=== PATIENT | female | born 1940 | race Caucasian/White ===

== ENCOUNTER 2018-01-06 09:09 | Emergency (ER) | payer MEDICARE, OTHER, SELFPAY ==
--- NOTE | 2018-01-06 09:10 | ED.BACK ---
HPI - Back Pain/Injury General Chief Complaint: Weakness Stated Complaint: Lower R side Back pain Time Seen by Provider: 01/06/18 09:10 Source: patient, family and EMS Mode of arrival: EMS Limitations: no limitations History of Present Illness HPI Narrative: 77-year-old female, nonsmoker presents to the emergency department with a chief complaint of severe right lower back pain upon waking this morning. She states the pain was increased when she got up to try to urinate and she had difficulty ambulating. She laid back down and fell asleep for a few more hours and then woke up again, to urinate and her right lower back pain was severe and she felt rather achy all over. 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 She denies fever or chills. She denies any runny nose, sore throat or cough. She denies dysuria, frequency or urgency. She has had no change in bowel habits. She denies any different or new medications. She has had no problems controlling bowel or bladder. She denies numbness, tingling or weakness in her extremities. She does state that she wore a new pair shoes yesterday with provided very little support Complaint: back pain Onset (ago): hour(s) Duration: constant Similar Symptoms Previously: No Location: lumbar spine Severity: moderate Quality: burning, sharp and aching Radiation: none Relieving factors: immobilization Exacerbating factors: walking Context: other Associated symptoms: denies other symptoms Related Data Home Medications Medication Instructions Recorded Confirmed omega 8-esh-ies-fish oil [Fish Oil] 1,000 iu PO Q DAY #0 08/05/11 01/06/18 Probiotic 1 dose PO PRN PRN 01/06/18 01/06/18 glucosamine sulfate-msm 1 applic TOPICAL DIRECTED 01/06/18 01/06/18 [MSM/Glucosamine] Previous Rx's Medication Instructions Recorded clobetasol 1 pankaj TOPICAL SEE INSTRUCTIONS #30 05/07/17 gm ketorolac 10 mg PO Q4-6H PRN #20 tab 01/06/18 Allergies Allergy/AdvReac Type Severity Reaction Status Date / Time azithromycin [AZITHROMYCIN] Allergy Mild GI PROBLEMS Unverified 06/16/17 12:01 Review of Systems Review of Systems All systems reviewed & are unremarkable except as noted in HPI and below Constitutional Denies chills, Denies fever(s), Denies lethargy and Denies weakness Eyes Denies change in vision, Denies eye discharge, Denies irritation and Denies loss of vision ENT Ears, Nose, Mouth, and Throat: Denies change in voice, Denies neck pain and Denies sore throat Cardiovascular Denies chest pain, Denies irregular heart rhythm, Denies lightheadedness, Denies palpitations, Denies dyspnea, Denies dyspnea on exertion and Denies orthopnea Respiratory Denies cough, Denies dyspnea, Denies dyspnea on exertion and Denies wheezing Gastrointestinal Gastrointestinal: Denies abdominal pain, Denies change in bowel habits, Denies diarrhea, Denies nausea and Denies vomiting Genitourinary Denies hematuria, Denies flank pain, Denies urinary incontinence and Denies urinary urgency Musculoskeletal Reports back pain and Denies neck pain Integumentary/Breasts Denies pruritus, Denies erythema, Denies rash and Denies wounds Neurologic Denies confusion, Denies loss of vision and Denies weakness Psychiatric Denies anxiety, Denies confusion, Denies depression, Denies homicidal ideation and Denies suicidal ideation Endocrine Denies palpitations Hematologic/Lymphatic Denies easy bruising Allergic/Immunologic Denies wheezing PFSH Surgical History History of total mastectomy Status post hysterectomy Family History Child Age: 55 Depression Child Age: 53 [place] Father Heart disease Gout Esophageal cancer Tobacco chew use Mother Diabetes mellitus Heart disease Sister Age: 84 Gout Exam Narrative Exam Narrative: GENERAL: This is a well-nourished, well-developed patient, in mild distress. HEAD: Atraumatic. Normocephalic. No temporal or scalp tenderness. EYES: Pupils equal round and reactive. Extraocular motions intact. No scleral icterus. No injection or drainage. ENT: Nose without bleeding, purulent drainage or septal hematoma. Throat without erythema, tonsillar hypertrophy or exudate. Uvula midline. Airway patent. NECK: Trachea midline. No JVD or lymphadenopathy. Supple, nontender, no meningeal signs. CARDIOVASCULAR: Regular rate and rhythm without murmurs, gallops, or rubs. RESPIRATORY: Clear to auscultation. Breath sounds equal bilaterally. No wheezes, rales, or rhonchi. GASTROINTESTINAL: Abdomen soft, non-tender, nondistended. No hepato-splenomegaly, or palpable masses. No guarding. EXTREMITIES: No clubbing, cyanosis, or edema. No joint tenderness, effusion, or edema noted. NEURO: AOx3. SKIN: No rash or erythema. 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 Patient exam notes decreased range of motion and muscle spasm, but no CVA tenderness, or vertebral point tenderness. There are no symptoms of cauda equina such as saddle anesthesia, and decreased reflexes, decreased sensation or strength. Initial Vital Signs Initial Vital Signs: Vital Signs Temperature 98.5 F 01/06/18 09:17 Pulse Rate 76 01/06/18 09:17 Respiratory Rate 12 01/06/18 09:17 Blood Pressure 120/71 01/06/18 09:17 Pulse Oximetry 96 01/06/18 09:17 Course Orders Ordered: ED Orders 01/06/18 09:40 Basic Metabolic Panel Stat Complete Blood Count AUTO DIFF Stat Discontinued Medications Ketorolac Tromethamine (Toradol) 15 mg IV NOW ONE Stop: 01/06/18 09:56 Last Admin: 01/06/18 10:04 Dose: 15 mg Reevaluation(s) Reevaluation #1: Patient feels much better after Toradol and able to ambulate through the department without difficulty Vital Signs - 8 hr 01/06/18 09:17 01/06/18 09:18 01/06/18 11:10 Temperature 98.5 F 98.5 F Pulse Rate 76 77 78 Respiratory Rate 12 16 14 Blood Pressure 120/71 Blood Pressure [Left Arm] 120/71 145/69 H Pulse Oximetry 96 97 97 01/06/18 12:52 Temperature 98.7 F Pulse Rate 77 Respiratory Rate 20 Blood Pressure 129/57 L Blood Pressure [Left Arm] Pulse Oximetry 97 MDM - Back Pain/Injury Lab Data Result diagrams: 01/06/18 09:40 01/06/18 09:40 Lab Results 01/06/18 01/06/18 Range/Units 09:40 09:40 WBC 4.6 (4.5-11.0) X10^3/uL RBC 4.81 (4.0-5.2) X10^6/uL Hgb 14.5 (12.0-16.0) g/dL Hct 43.2 (36-46) % MCV 89.7 (80-100) fL MCH 30.2 (26-34) PG MCHC 33.7 (30-36) % RDW 13.7 (11.6-14.8) % Plt Count 232 (150-400) X10^3/uL Neut % (Auto) 62.9 (50-75) % Lymph % (Auto) 25.9 (25-40) % [place] % (Auto) 8.3 (3-14) % Eos % (Auto) 2.3 (2-4) % Baso % (Auto) 0.6 (0-2) % Neut # (Auto) 2900 L (9301-5313) /uL Sodium 144 (137-145) mmol/L Potassium 4.1 (3.4-5.1) mmol/L Chloride 105 (98-107) mmol/L Carbon Dioxide 27 (22-32) mmol/L BUN 13 (7-17) mg/dL Creatinine 0.60 (0.52-1.04) mg/dL Estimated GFR > 60.0 (>60) mL/min BUN/Creatinine Ratio 21.7 (6-22) Glucose 93 (80-110) mg/dL Calcium 9.3 (8.4-10.2) mg/dL Urine Dip Bedside Urine Glucose Negative Bedside Urine Bilirubin - Negative Bedside Urine Ketone - Negative Urine Specific [place] 1.015 Bedside Urine Occult Blood - Negative Bedside Urine pH 7.5 Bedside Urine Protein - Negative Bedside Urine Urobilinogen - Negative Bedside Urine Nitrite - Negative Bedside Urine Leukocytes - Negative Esterase Discharge Plan Departure Patient Disposition: Home Clinical Impression: Right lumbar pain Discharge Date/Time: 01/06/18 12:53 Interventions: ED Discharge Assessment Last Done: 01/06/18 12:52 Instructions: DI for Low Back Pain Activity Restrictions/Additional Instructions: *You have been diagnosed with [ acute lumbar pain ] *What to do: *Take medications as directed *Follow up with your primary care provider in 2-3 days, call for an appointment. Let them know you were seen in the Emergency Department and that we ask that you be seen in follow up *Return to ER if you should have any new, worsening or concerning symptoms Prescriptions: New ketorolac 10 mg tablet 10 mg PO Q4-6H PRN (Reason: pain) Qty: 20 RF: 0 No Action omega 0-xym-ezg-fish oil [Fish Oil] 1,000 mg (120 mg-180 mg) Capsule 1,000 iu PO Q DAY Qty: 0 RF: 0 clobetasol 0.05 % ointment 1 pankaj Topical SEE INSTRUCTIONS Qty: 30 RF: 0 glucosamine sulfate-msm [MSM/Glucosamine] Cream 1 applic Topical DIRECTED RF: 0 Probiotic 1 dose PO PRN PRN (Reason: VAGINAL CARE) RF: 0 Referrals: Chandni Chandler DO [Primary Care Provider] -
[2018-01-06 09:17] VITALS: BP 120/71; PULSE 76; RESP 12; TEMP 36.9; O2SAT 96
[2018-01-06 09:18] VITALS: BP 120/71; PULSE 77; RESP 16; TEMP 36.9; O2SAT 97
[2018-01-06 09:55] LABS: Add Manual Diff / Slide Review NO; Basophils Percent Auto 0.6 % (0-2); Eosinophils Percent Auto 2.3 % (2-4); Hematocrit 43.2 % (36-46); Hemoglobin 14.5 g/dL (12.0-16.0); Lymphocytes Percent Auto 25.9 % (25-40); Mean Corpuscular HGB Conc 33.7 % (30-36); Mean Corpuscular Hemoglobin 30.2 PG (26-34); Mean Corpuscular Volume 89.7 fL (80-100); Monocytes Percent Auto 8.3 % (3-14); Neutrophils Absolute Auto 2900 /uL (3000-5900); Neutrophils Percent Auto 62.9 % (50-75); Platelet Count 232 X10^3/uL (150-400); Red Blood Cell Count 4.81 X10^6/uL (4.0-5.2); Red Cell Distribution Width 13.7 % (11.6-14.8); White Blood Cell Count 4.6 X10^3/uL (4.5-11.0)
[2018-01-06] MEDS: KETOROLAC 60 MG/2 ML VIAL 15 MG IV (10:04)
[2018-01-06 10:39] LABS: BUN Creatinine Ratio 21.7 (6-22); Blood Urea Nitrogen 13 mg/dL (7-17); Calcium 9.3 mg/dL (8.4-10.2); Carbon Dioxide 27 mmol/L (22-32); Chloride 105 mmol/L (98-107); Estimated Glomerular Filt Rate > 60.0 mL/min (>60); Glucose 93 mg/dL (80-110); HEMOLYSIS < 15 (0-50); Potassium 4.1 mmol/L (3.4-5.1); Sodium 144 mmol/L (137-145)
[2018-01-06 11:10] VITALS: BP 145/69; PULSE 78; RESP 14; O2SAT 97
--- NOTE | 2018-01-06 12:10 | PC.NURSE ---
ambulated well, stand by assist. C/O aching pain but bearable
[2018-01-06 12:52] VITALS: BP 129/57; PULSE 77; RESP 20; TEMP 37.1; O2SAT 97
--- NOTE | 2018-01-06 16:13 | ED_ITS ---
HPI - Back Pain/Injury General Chief Complaint: Weakness Stated Complaint: Lower R side Back pain Time Seen by Provider: 01/06/18 09:10 Source: patient, family and EMS Mode of arrival: EMS Limitations: no limitations History of Present Illness HPI Narrative: 77-year-old female, nonsmoker presents to the emergency department with a chief complaint of severe right lower back pain upon waking this morning. She states the pain was increased when she got up to try to urinate and she had difficulty ambulating. She laid back down and fell asleep for a few more hours and then woke up again, to urinate and her right lower back pain was severe and she felt rather achy all over. 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 She denies fever or chills. She denies any runny nose, sore throat or cough. She denies dysuria, frequency or urgency. She has had no change in bowel habits. She denies any different or new medications. She has had no problems controlling bowel or bladder. She denies numbness, tingling or weakness in her extremities. She does state that she wore a new pair shoes yesterday with provided very little support Complaint: back pain Onset (ago): hour(s) Duration: constant Similar Symptoms Previously: No Location: lumbar spine Severity: moderate Quality: burning, sharp and aching Radiation: none Relieving factors: immobilization Exacerbating factors: walking Context: other Associated symptoms: denies other symptoms Related Data Home Medications Medication Instructions Recorded Confirmed omega 1-zwo-neo-fish oil [Fish Oil] 1,000 iu PO Q DAY #0 08/05/11 01/06/18 Probiotic 1 dose PO PRN PRN 01/06/18 01/06/18 glucosamine sulfate-msm 1 applic TOPICAL DIRECTED 01/06/18 01/06/18 [MSM/Glucosamine] Previous Rx's Medication Instructions Recorded clobetasol 1 pankaj TOPICAL SEE INSTRUCTIONS #30 05/07/17 gm ketorolac 10 mg PO Q4-6H PRN #20 tab 01/06/18 Allergies Allergy/AdvReac Type Severity Reaction Status Date / Time azithromycin [AZITHROMYCIN] Allergy Mild GI PROBLEMS Unverified 06/16/17 12:01 Review of Systems Review of Systems All systems reviewed & are unremarkable except as noted in HPI and below Constitutional Denies chills, Denies fever(s), Denies lethargy and Denies weakness Eyes Denies change in vision, Denies eye discharge, Denies irritation and Denies loss of vision ENT Ears, Nose, Mouth, and Throat: Denies change in voice, Denies neck pain and Denies sore throat Cardiovascular Denies chest pain, Denies irregular heart rhythm, Denies lightheadedness, Denies palpitations, Denies dyspnea, Denies dyspnea on exertion and Denies orthopnea Respiratory Denies cough, Denies dyspnea, Denies dyspnea on exertion and Denies wheezing Gastrointestinal Gastrointestinal: Denies abdominal pain, Denies change in bowel habits, Denies diarrhea, Denies nausea and Denies vomiting Genitourinary Denies hematuria, Denies flank pain, Denies urinary incontinence and Denies urinary urgency Musculoskeletal Reports back pain and Denies neck pain Integumentary/Breasts Denies pruritus, Denies erythema, Denies rash and Denies wounds Neurologic Denies confusion, Denies loss of vision and Denies weakness Psychiatric Denies anxiety, Denies confusion, Denies depression, Denies homicidal ideation and Denies suicidal ideation Endocrine Denies palpitations Hematologic/Lymphatic Denies easy bruising Allergic/Immunologic Denies wheezing PFSH Surgical History History of total mastectomy Status post hysterectomy Family History Child Age: 55 Depression Child Age: 53 [place] Father Heart disease Gout Esophageal cancer Tobacco chew use Mother Diabetes mellitus Heart disease Sister Age: 84 Gout Exam Narrative Exam Narrative: GENERAL: This is a well-nourished, well-developed patient, in mild distress. HEAD: Atraumatic. Normocephalic. No temporal or scalp tenderness. EYES: Pupils equal round and reactive. Extraocular motions intact. No scleral icterus. No injection or drainage. ENT: Nose without bleeding, purulent drainage or septal hematoma. Throat without erythema, tonsillar hypertrophy or exudate. Uvula midline. Airway patent. NECK: Trachea midline. No JVD or lymphadenopathy. Supple, nontender, no meningeal signs. CARDIOVASCULAR: Regular rate and rhythm without murmurs, gallops, or rubs. RESPIRATORY: Clear to auscultation. Breath sounds equal bilaterally. No wheezes , rales, or rhonchi. GASTROINTESTINAL: Abdomen soft, non-tender, nondistended. No hepato-splenomegaly , or palpable masses. No guarding. EXTREMITIES: No clubbing, cyanosis, or edema. No joint tenderness, effusion, or edema noted. NEURO: AOx3. SKIN: No rash or erythema. 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 Patient exam notes decreased range of motion and muscle spasm, but no CVA tenderness, or vertebral point tenderness. There are no symptoms of cauda equina such as saddle anesthesia, and decreased reflexes, decreased sensation or strength. Initial Vital Signs Initial Vital Signs: Vital Signs Temperature 98.5 F 01/06/18 09:17 Pulse Rate 76 01/06/18 09:17 Respiratory Rate 12 01/06/18 09:17 Blood Pressure 120/71 01/06/18 09:17 Pulse Oximetry 96 01/06/18 09:17 Course Orders Ordered: ED Orders 01/06/18 09:40 Basic Metabolic Panel Stat Complete Blood Count AUTO DIFF Stat Discontinued Medications Ketorolac Tromethamine (Toradol) 15 mg IV NOW ONE Stop: 01/06/18 09:56 Last Admin: 01/06/18 10:04 Dose: 15 mg Reevaluation(s) Reevaluation #1: Patient feels much better after Toradol and able to ambulate through the department without difficulty Vital Signs - 8 hr 01/06/18 09:17 01/06/18 09:18 01/06/18 11:10 Temperature 98.5 F 98.5 F Pulse Rate 76 77 78 Respiratory Rate 12 16 14 Blood Pressure 120/71 Blood Pressure [Left Arm] 120/71 145/69 H Pulse Oximetry 96 97 97 01/06/18 12:52 Temperature 98.7 F Pulse Rate 77 Respiratory Rate 20 Blood Pressure 129/57 L Blood Pressure [Left Arm] Pulse Oximetry 97 MDM - Back Pain/Injury Lab Data Result diagrams: 01/06/18 09:40 01/06/18 09:40 Lab Results 01/06/18 01/06/18 Range/Units 09:40 09:40 WBC 4.6 (4.5-11.0) X10^3/uL RBC 4.81 (4.0-5.2) X10^6/uL Hgb 14.5 (12.0-16.0) g/dL Hct 43.2 (36-46) % MCV 89.7 (80-100) fL MCH 30.2 (26-34) PG MCHC 33.7 (30-36) % RDW 13.7 (11.6-14.8) % Plt Count 232 (150-400) X10^3/uL Neut % (Auto) 62.9 (50-75) % Lymph % (Auto) 25.9 (25-40) % [place] % (Auto) 8.3 (3-14) % Eos % (Auto) 2.3 (2-4) % Baso % (Auto) 0.6 (0-2) % Neut # (Auto) 2900 L (5676-4240) /uL Sodium 144 (137-145) mmol/L Potassium 4.1 (3.4-5.1) mmol/L Chloride 105 (98-107) mmol/L Carbon Dioxide 27 (22-32) mmol/L BUN 13 (7-17) mg/dL Creatinine 0.60 (0.52-1.04) mg/dL Estimated GFR > 60.0 (>60) mL/min BUN/Creatinine Ratio 21.7 (6-22) Glucose 93 (80-110) mg/dL Calcium 9.3 (8.4-10.2) mg/dL Urine Dip Bedside Urine Glucose Negative Bedside Urine Bilirubin - Negative Bedside Urine Ketone - Negative Urine Specific [place] 1.015 Bedside Urine Occult Blood - Negative Bedside Urine pH 7.5 Bedside Urine Protein - Negative Bedside Urine Urobilinogen - Negative Bedside Urine Nitrite - Negative Bedside Urine Leukocytes - Negative Esterase Discharge Plan Departure Patient Disposition: Home Clinical Impression: Right lumbar pain Discharge Date/Time: 01/06/18 12:53 Interventions: ED Discharge Assessment Last Done: 01/06/18 12:52 Instructions: DI for Low Back Pain Activity Restrictions/Additional Instructions: *You have been diagnosed with [ acute lumbar pain ] *What to do: *Take medications as directed *Follow up with your primary care provider in 2-3 days, call for an appointment. Let them know you were seen in the Emergency Department and that we ask that you be seen in follow up *Return to ER if you should have any new, worsening or concerning symptoms Prescriptions: New ketorolac 10 mg tablet 10 mg PO Q4-6H PRN (Reason: pain) Qty: 20 RF: 0 No Action omega 4-bho-atu-fish oil [Fish Oil] 1,000 mg (120 mg-180 mg) Capsule 1,000 iu PO Q DAY Qty: 0 RF: 0 clobetasol 0.05 % ointment 1 pankaj Topical SEE INSTRUCTIONS Qty: 30 RF: 0 glucosamine sulfate-msm [MSM/Glucosamine] Cream 1 applic Topical DIRECTED RF: 0 Probiotic 1 dose PO PRN PRN (Reason: VAGINAL CARE) RF: 0 Referrals: Chandni Chandler DO [Primary Care Provider] -
== END 2018-01-06 12:53 | disposition home or self-care (01) ==
PROVIDERS: Emergency Provider Emergency Medicine; PCP Family Medicine
DX: M54.5 Low back pain (principal)
CPT/HCPCS: 36591; 80048; 81003; 85025; 96374; 99283; 99284; J1885